=== PATIENT | female | born 1950 | race Caucasian/White ===

== ENCOUNTER 2017-11-05 06:24 | Day surgery (SDC) | payer MEDICARE, MEDICAID ==
[~2017-11-05 06:24] MED LIST: KETOROLAC TROMETHAMINE 0.45% 4 DROP/0.4 ML DROPERETTE OD PRN
[2017-11-05] MEDS: CYCLOPENTOLATE 0.2%/PHENYLEPHRINE 1% OPH SOLN 2 ML OD PRN ×3 (06:56→07:16)
[2017-11-05] MEDS: TROPICAMIDE 1% OPH SOLN 3 ML OD PRN ×3 (06:56→07:16)
[2017-11-05] MEDS: BESIFLOXACIN HCL 0.6% OPH SUSP 5 ML BOTTLE OD PRN ×3 (06:56→07:54)
[2017-11-05] MEDS: TETRACAINE HCL 0.5% OPH SOLN 2 ML OD PRN ×3 (06:57→07:34)
[2017-11-05] MEDS ORDERED: MIDAZOLAM 2 MG/2 ML INJ ONE (07:09)
[2017-11-05] MEDS ORDERED: FENTANYL CITRATE INJ/PF 100 MCG/2 ML AMPUL ONE (07:09)
[2017-11-05] MEDS ORDERED: EPINEPHRINE INJ/PF 1 MG/1 ML AMPULE ONE (07:10)
[2017-11-05] MEDS ORDERED: LIDOCAINE 1% INJ-PF (10 MG/ML) 30 ML SDV ONE (07:11)
[2017-11-05] MEDS ORDERED: CHONDR SU A NA/HYALUR INTRAOC KIT (SURGICARE) ONE (07:11)
[2017-11-05] MEDS ORDERED: ALBUTEROL SULFATE 0.083% NEB 2.5 MG/3 ML AMPUL NEB ONE (07:13)
--- NOTE | 2017-11-05 21:49 | [facility] DISCHARGE SUMMARY E ---
[facility] Discharge Summary NAME: NATHAN ROBLEDO AGE: 67Y ADMITTED: 11/05/2017 DISCHARGED: 11/05/2017 FINAL DIAGNOSIS: CATARACT, RIGHT EYE. HISTORY/CLINIC COURSE: This is a 66-year-old female who underwent cataract extraction of the right eye without complication, woke up in postoperative recovery in stable condition. She underwent surgery because she was having difficulty reading, even with wearing her specs with increased lighting. Patient is to be on a regular diet. No bending at the waist, no heavy lifting. Patient should use the Besivance, Ilevro, and Durezol at 3 p.m. and 8 p.m., and sleep with a rigid shield. I will see her for her 1-day postoperative tomorrow. DICTATING PHYSICIAN: MARY CHAND M.D. [id number] [id number] PHY#: [id number] ID: [id number] JOB#: [id number] ACCT: [id number] cc:MARY CHAND M.D. >
--- NOTE | 2017-11-05 21:49 | [facility] OPERATIVE REPORT E ---
[facility] Operative Report NAME: NATHAN ROBLEDO AGE: 67Y DATE OF SURGERY: 11/05/2017 PREOPERATIVE DIAGNOSIS: CATARACT, RIGHT EYE. POSTOPERATIVE DIAGNOSIS: CATARACT, RIGHT EYE. OPERATION: Cataract extraction with intraocular lens implant of the right eye. SURGEON: MARY CHAND M.D. ANESTHESIA: Topical. PROCEDURE: After obtaining appropriate consent, the patient's right eye was prepped and draped in sterile fashion as well as the surgeon in a sterile manner and cataract surgery was started. First a paracentesis blade was used to make a small side-port incision. Viscoelastic was used to inflate the anterior chamber. Next a 2.4 mm incision was made with the paracentesis blade. A continuous capsulorrhexis incision was made using a cystotome and Utrata forceps. Following this hydrodissection was carried out to make the lens fully loose and mobile and it was rotated 90 degrees. Following this, a azuuma-pya-tsvzeli technique was used to phacoemulsify the lens with a CDE of 3.69. The remaining cortex was removed with irrigation/aspiration. Provisc was instilled into the capsular bag to inflate the bag. A SN60WF, 23.5 diopter lens was placed. The remaining viscoelastic material was removed with irrigation/aspiration. Following this, a 10-0 nylon suture was used to close the incision and it was found to be watertight. Vigamox was instilled in the eye and a protective shield was placed over the eye. The patient returned to the postoperative recovery in stable condition. DICTATING PHYSICIAN: MARY CHAND M.D. [id number] PHY#: [id number] ID: [id number] JOB#: [id number] ACCT: [id number] cc:MARY CHAND M.D. >
== END 2017-11-05 08:45 | disposition home or self-care (01) ==
LOC: SC 06:24
PROVIDERS: ATTEND Internal Medicine
PROC: 08RJ3JZ Replacement of Right Lens with Synthetic Substitute, Percutaneous Approach (ICD-10-PCS; principal; 2017-11-05 07:30)
DX: H25.11 Age-related nuclear cataract, right eye (principal); J44.9 Chronic obstructive pulmonary disease, unspecified; E11.9 Type 2 diabetes mellitus without complications; K21.9 Gastro-esophageal reflux disease without esophagitis; I10 Essential (primary) hypertension; F17.210 Nicotine dependence, cigarettes, uncomplicated; G47.30 Sleep apnea, unspecified; Z79.899 Other long term (current) drug therapy; Z79.4 Long term (current) use of insulin
CPT/HCPCS: 66984; 82962; V2632; J2250; J3490 ×2; A9270 ×2; J0171; J3010; 142

== ENCOUNTER 2017-11-26 06:25 | Day surgery (SDC) | payer MEDICARE, MEDICAID ==
[2017-11-26] MEDS: TROPICAMIDE 1% OPH SOLN 3 ML OS PRN ×3 (06:54→07:15)
[2017-11-26] MEDS: CYCLOPENTOLATE 0.2%/PHENYLEPHRINE 1% OPH SOLN 2 ML OS PRN ×3 (06:54→07:15)
[2017-11-26] MEDS: TETRACAINE HCL 0.5% OPH SOLN 2 ML OS PRN ×3 (06:54→07:31)
[2017-11-26] MEDS: BESIFLOXACIN HCL 0.6% OPH SUSP 5 ML BOTTLE OS PRN ×3 (06:55→07:55)
[2017-11-26] MEDS: KETOROLAC TROMETHAMINE 0.45% 4 DROP/0.4 ML DROPERETTE OS PRN ×2 (06:55→08:00)
[2017-11-26] MEDS ORDERED: ALBUTEROL SULFATE 0.083% NEB 2.5 MG/3 ML AMPUL NEB ONE (07:06)
[2017-11-26] MEDS ORDERED: MIDAZOLAM 2 MG/2 ML INJ ONE (07:11)
[2017-11-26] MEDS ORDERED: CHONDR SU A NA/HYALUR INTRAOC KIT (SURGICARE) ONE (07:13)
[2017-11-26] MEDS ORDERED: EPINEPHRINE INJ/PF 1 MG/1 ML AMPULE ONE (07:13)
[2017-11-26] MEDS ORDERED: LIDOCAINE 1% INJ-PF (10 MG/ML) 30 ML SDV ONE (07:13)
--- NOTE | 2017-11-26 19:54 | [facility] DISCHARGE SUMMARY E ---
[facility] Discharge Summary NAME: NATHAN ROBLEDO AGE: 67Y ADMITTED: 11/26/2017 DISCHARGED: 11/26/2017 HOSPITAL COURSE: This is a 67-year-old female who underwent cataract extraction of the left eye. DIAGNOSIS: CATARACT, LEFT EYE. She underwent surgery because she was having trouble seeing words on the TV and small print. DISCHARGE INSTRUCTIONS: She should be on a regular diet. No bending at her waist, no heavy lifting. She should use Besivance, Ilevro, and Durezol at 3 p.m. and 8 p.m. and sleep with a rigid shield. I will see her for her 1 day postoperative tomorrow. DICTATING PHYSICIAN: MARY CHAND M.D. [id number] PHY#: [id number] ID: [id number] JOB#: [id number] ACCT: [id number] cc:MARY CHAND M.D. >
--- NOTE | 2017-11-26 19:54 | [facility] OPERATIVE REPORT E ---
[facility] Operative Report NAME: NATHAN ROBLEDO AGE: 67Y DATE OF SURGERY: 11/26/2017 ROOM: PREOPERATIVE DIAGNOSIS: CATARACT, LEFT EYE. POSTOPERATIVE DIAGNOSIS: CATARACT, LEFT EYE. OPERATION: Cataract extraction with intraocular lens implant of the left eye. SURGEON: MARY CHAND M.D. ANESTHESIA: Topical. PROCEDURE: After obtaining appropriate consent, the patient's left eye was prepped and draped in sterile fashion as well as the surgeon in a sterile manner and cataract surgery was started. First a paracentesis blade was used to make a small side-port incision. Viscoelastic was used to inflate the anterior chamber. Next a 2.4 mm incision was made with the paracentesis blade. A continuous capsulorrhexis incision was made using a cystotome and Utrata forceps. Following this hydrodissection was carried out to make the lens fully loose and mobile and it was rotated 90 degrees. Following this, a pgmxht-por-comjztz technique was used to phacoemulsify the lens. The remaining cortex was removed with irrigation/aspiration. Provisc was instilled into the capsular bag to inflate the bag. A SN60WF, 22.5 diopter lens was placed. The remaining viscoelastic material was removed with irrigation/aspiration. Following this, a 10-0 nylon suture was used to close the incision and it was found to be watertight. Vigamox was instilled in the eye and a protective shield was placed over the eye. The patient returned to the postoperative recovery in stable condition. DICTATING PHYSICIAN: MARY CHAND M.D. [id number] [id number] PHY#: [id number] ID: [id number] JOB#: [id number] ACCT: [id number] cc:MARY CHAND M.D. > MTDD
== END 2017-11-26 08:41 | disposition home or self-care (01) ==
LOC: SC 06:25
PROVIDERS: ATTEND Internal Medicine
PROC: 08RK3JZ Replacement of Left Lens with Synthetic Substitute, Percutaneous Approach (ICD-10-PCS; principal; 2017-11-26 07:30)
DX: H25.13 Age-related nuclear cataract, bilateral (principal); H53.2 Diplopia; H50.89 Other specified strabismus; H04.123 Dry eye syndrome of bilateral lacrimal glands; H34.211 Partial retinal artery occlusion, right eye; E11.9 Type 2 diabetes mellitus without complications; I10 Essential (primary) hypertension; J44.9 Chronic obstructive pulmonary disease, unspecified; M19.90 Unspecified osteoarthritis, unspecified site; F17.210 Nicotine dependence, cigarettes, uncomplicated; G40.909 Epilepsy, unspecified, not intractable, without status epilepticus; I49.9 Cardiac arrhythmia, unspecified; R07.9 Chest pain, unspecified; G43.909 Migraine, unspecified, not intractable, without status migrainosus; I51.9 Heart disease, unspecified; Z79.4 Long term (current) use of insulin; Z86.73 Personal history of transient ischemic attack (TIA), and cerebral infarction without residual deficits; Z85.42 Personal history of malignant neoplasm of other parts of uterus
CPT/HCPCS: 66984; 82962; V2632; J2250; J3490 ×2; A9270 ×2; J0171; 142

== ENCOUNTER 2017-12-03 11:45 | Day surgery (SDC) | payer MEDICARE, MEDICAID ==
[~2017-12-03 11:45] MED LIST changes: +DIPHENHYDRAMINE HCL 50 MG/ML VIAL ONE; +EPINEPHRINE INJ 1 MG/10 ML DISP.SYRIN ONE; +FENTANYL CITRATE INJ/PF 100 MCG/2 ML AMPUL ONE; +FLUMAZENIL INJ 0.5 MG/5 ML VIAL ONE; +GLUCAGON,HUMAN RECOMB 1 MG INJ ONE; -KETOROLAC TROMETHAMINE 0.45% 4 DROP/0.4 ML DROPERETTE OD PRN; +MIDAZOLAM 2 MG/2 ML INJ ONE; +NALOXONE HCL INJ/PF 0.4 MG/1 ML SDV ONE; +ONDANSETRON HCL INJ/PF 4 MG/2 ML SDV ONE
--- NOTE | 2017-12-03 14:06 | Operative Report ---
Operative Report DATE OF SURGERY: 12/03/17 Operative Report: The risks benefits and alternatives of the procedure explained to the patient in detail and informed consent is obtained.A GIF Olympus video scope was inserted into the patient's mouth and hypopharynx, the esophagus is identified intubated and insufflated ,the scope was then advanced through the esophagus stomach and duodenum, retroflexion maneuver is done the esophagus stomach and first and second portions of the duodenum examined PREOPERATIVE DIAGNOSIS: Dysphagia POSTOPERATIVE DIAGNOSIS: Schatzki's ring status post breakage. Hiatal hernia. Gastritis status post biopsy rule out Helicobacter pylori OPERATION: EGD with biopsy SURGEON: VIANNEY LAURA ANESTHESIA: Moderate Sedation - 2 mg of Versed, 50 mcg of fentanyl. Conscious sedation monitoring time 30 minutes. TISSUE REMOVED OR ALTERED: As noted above. COMPLICATIONS: None. ESTIMATED BLOOD LOSS: None. INTRAOPERATIVE FINDINGS: As noted above. PROCEDURE: Patient tolerated procedure well. No immediate postprocedure complications are noted. Patient discharged in good condition. Discharge date 12/03/2017. Discharge diet: Regular. Discharge activity: Regular. 2-3 week follow-up to discuss findings. Patient is instructed call the office or proceed to the emergency room should there be any further problems or questions. We will await pathology.
[2017-12-03 14:26] VITALS: BP 163/69
== END 2017-12-03 14:07 | disposition home or self-care (01) ==
LOC: END 11:45
PROVIDERS: ATTEND Internal Medicine Gastroenterology
PROC: 0DB68ZX Excision of Stomach, Via Natural or Artificial Opening Endoscopic, Diagnostic (ICD-10-PCS; principal; 2017-12-03 12:30)
DX: K22.2 Esophageal obstruction (principal); K44.9 Diaphragmatic hernia without obstruction or gangrene; K29.70 Gastritis, unspecified, without bleeding; K21.9 Gastro-esophageal reflux disease without esophagitis; I11.9 Hypertensive heart disease without heart failure; J44.9 Chronic obstructive pulmonary disease, unspecified; E11.9 Type 2 diabetes mellitus without complications; E53.8 Deficiency of other specified B group vitamins; E78.01 Familial hypercholesterolemia; G43.909 Migraine, unspecified, not intractable, without status migrainosus; Z79.899 Other long term (current) drug therapy; Z79.82 Long term (current) use of aspirin; Z79.4 Long term (current) use of insulin
CPT/HCPCS: 43239; 82962; 88305 ×2; J2250; J3010; J0171; J1200; J1610; J2310; J2405; J3490

== ENCOUNTER 2018-01-04 07:25 | Day surgery (SDC) | payer MEDICARE, MEDICAID ==
[~2018-01-04 07:25] MED LIST changes: -DIPHENHYDRAMINE HCL 50 MG/ML VIAL ONE; -EPINEPHRINE INJ 1 MG/10 ML DISP.SYRIN ONE; -FENTANYL CITRATE INJ/PF 100 MCG/2 ML AMPUL ONE; -FLUMAZENIL INJ 0.5 MG/5 ML VIAL ONE; -GLUCAGON,HUMAN RECOMB 1 MG INJ ONE; -MIDAZOLAM 2 MG/2 ML INJ ONE; -NALOXONE HCL INJ/PF 0.4 MG/1 ML SDV ONE; -ONDANSETRON HCL INJ/PF 4 MG/2 ML SDV ONE; +PROPOFOL INJ 200 MG/20 ML VIAL IV ONE
[2018-01-04 08:52] VITALS: BP 134/57
--- NOTE | 2018-01-04 13:25 | Operative Report ---
Operative Report DATE OF SURGERY: 01/04/18 Operative Report: The risks benefits and alternatives of the procedure explained to the patient in detail and informed consent is obtained.A GIF Olympus video scope was inserted into the patient's mouth and hypopharynx, the esophagus is identified intubated and insufflated, the scope was then advanced through the esophagus stomach and duodenum, retroflexion maneuver is done, the esophagus stomach and first and second portions of the duodenum examined PREOPERATIVE DIAGNOSIS: Schatzki's ring previously broken but patient still having dysphagia POSTOPERATIVE DIAGNOSIS: Schatzki's ring and hiatal hernia present. Status post bougie dilation over guidewire 45 [place] OPERATION: EGD with dilation SURGEON: VIANNEY LAURA ANESTHESIA: LMAC TISSUE REMOVED OR ALTERED: None. COMPLICATIONS: None. ESTIMATED BLOOD LOSS: None. INTRAOPERATIVE FINDINGS: As noted above. PROCEDURE: Patient tolerated procedure well. No postprocedure complications are noted. Patient discharged in good condition. Discharge date 01/04/2018. Discharge diet: Regular. Discharge activity: Regular. 2-3 week follow-up to discuss findings. Patient is instructed call the office should there be any further problems or questions. We will wait on pathology.
== END 2018-01-04 09:00 | disposition home or self-care (01) ==
LOC: END 07:25
PROVIDERS: ATTEND Internal Medicine Gastroenterology
DX: K22.2 Esophageal obstruction (principal); J44.9 Chronic obstructive pulmonary disease, unspecified; I25.10 Atherosclerotic heart disease of native coronary artery without angina pectoris; I10 Essential (primary) hypertension; E11.9 Type 2 diabetes mellitus without complications; F17.210 Nicotine dependence, cigarettes, uncomplicated; I11.9 Hypertensive heart disease without heart failure; G47.33 Obstructive sleep apnea (adult) (pediatric); E78.01 Familial hypercholesterolemia; Z86.73 Personal history of transient ischemic attack (TIA), and cerebral infarction without residual deficits; Z79.4 Long term (current) use of insulin; Z79.84 Long term (current) use of oral hypoglycemic drugs; Z79.82 Long term (current) use of aspirin; Z79.899 Other long term (current) drug therapy; Z88.5 Allergy status to narcotic agent; Z88.1 Allergy status to other antibiotic agents; Z88.6 Allergy status to analgesic agent; Z88.7 Allergy status to serum and vaccine; Z88.8 Allergy status to other drugs, medicaments and biological substances
CPT/HCPCS: 43248; 731; 82962; J2704

== ENCOUNTER → 2019-02-23 | Outpatient (CLI) | payer MEDICARE, MEDICAID ==
--- NOTE | 2019-02-23 19:00 | RADIOLOGY REPORT (SQ) ---
EXAM DESCRIPTION: MRI HEAD COMBO COMPLETED DATE/TIME: 02/23/2019 4:25 pm REASON FOR STUDY: DIPLOPIA H53.2 DIPLOPIA COMPARISON: None. TECHNIQUE: Multiplanar imaging includes noncontrasted T1, T2, FLAIR, Diffusion with ADC map and post gadolinium contrast T1 sequences. Images stored on PACS. CONTRAST TYPE AND DOSE: 20 mL Dotarem RENAL FUNCTION: GFR > 60. LIMITATIONS: None. FINDINGS: ANATOMY: No anomalies. Normal vascular flow voids. Pituitary fossa normal. CSF SPACES: Atrophy-induced prominence of CSF spaces and ventricles. CEREBRUM: High-signal intensity lesions scattered throughout the white matter on FLAIR imaging with d istribution suggesting chronic micro-vascular ischemic change. No evidence of hemorrhage, mass, extra axial fluid collection or acute ischemic change. No enhancing lesions. POSTERIOR FOSSA: No hemorrhage. No edema, masses, or mass effect. Internal auditory canals, cerebell o-pontine angles, mastoids normal. No enhancing lesions. ORBITS: No masses. Globes unremarkable. PARANASAL SINUSES: Mucosal thickening -fluid in the sphenoid sinus. DIFFUSION: No evidence of recent infarct. OTHER: No other significant finding. IMPRESSION: Mucosal thickening -fluid in the sphenoid sinus.No evidence of recent infarct.High-signa l intensity lesions scattered throughout the white matter on FLAIR imaging with distribution suggesti ng chronic micro-vascular ischemic change. No enhancing lesions. Orbits unremarkable. EVIDENCE OF ACUTE STROKE: NO. TECHNICAL DOCUMENTATION: JOB ID: [id number] [id number] 2010 [employer]- All Rights Reserved Reading location - IP/workstation name: [email or web address]
== END ==
LOC: RAD 14:58
PROVIDERS: ATTEND Internal Medicine
DX: H53.2 Diplopia (principal)
CPT/HCPCS: 70553; A9576

== ENCOUNTER 2020-04-18 07:37 | Day surgery (SDC) | payer MEDICARE, MEDICAID ==
[2020-04-18] MEDS ORDERED: PROPOFOL INJ 200 MG/20 ML VIAL IV ONE (08:00)
[2020-04-18 10:31] VITALS: BP 137/58
--- NOTE | 2020-04-18 10:58 | Operative Report ---
Operative Report DATE OF SURGERY: 04/18/20 Operative Report: Risk, benefits and alternatives of the procedure including the risk of bleeding, perforation requiring surgery have been explained to the patient in detail and informed consent has been obtained. Patient is taken back to the endoscopy suite and placed in the left, lateral decubital position. Timeout was called. Propofol medication is administered. A rectal examination is done which did not reveal any masses, tears or fissures. An Olympus videoscope was introduced into the patient's rectum. Scope was then carefully advanced all the way to the cecum. Cecum was identified by the usual anatomical landmarks including the ileocecal valve as well as appendiceal office. Photodocumentation is obtained. Scope was then sequentially pulled back via the various segments of the colon including the ascending colon, hepatic lecture, transverse colon, splenic flexure, descending colon finding to the rectosigmoid portions of the colon. Retroflexion maneuvers performed. PREOPERATIVE DIAGNOSIS: Change of bowel habits, diarrhea POSTOPERATIVE DIAGNOSIS: Random biopsies taken to rule out collagenous colitis. 3 colon polyps all removed via snare polypectomy and retrieved, the polyps were somewhat on the largest size approximating approximately 1 cm. Diverticulosis without any evidence of diverticulitis. Internal hemorrhoids OPERATION: Colonoscopy snare polypectomy. colonoscopy with biopsy SURGEON: VIANNEY LAURA ANESTHESIA: LMAC TISSUE REMOVED OR ALTERED: As noted above. COMPLICATIONS: None. ESTIMATED BLOOD LOSS: None. INTRAOPERATIVE FINDINGS: As noted above. PROCEDURE: Patient tolerated the procedure well. No immediate postprocedure complications are noted. Patient is discharged in good condition. Discharge date 04/18/2019. Discharge diet: Regular. Discharge activity: Regular. 2 to 3-week follow-up to discuss findings. Patient is instructed call the office or proceed to the emergency room should there be any further problems or questions. Wait on the pathology. Likely 3-year surveillance colonoscopy.
== END 2020-04-18 10:30 | disposition home or self-care (01) ==
LOC: END 07:37
PROVIDERS: ATTEND Internal Medicine Gastroenterology
DX: D12.6 Benign neoplasm of colon, unspecified (principal); K57.30 Diverticulosis of large intestine without perforation or abscess without bleeding; K64.8 Other hemorrhoids; J44.9 Chronic obstructive pulmonary disease, unspecified; F17.210 Nicotine dependence, cigarettes, uncomplicated; I10 Essential (primary) hypertension; R06.02 Shortness of breath; I25.2 Old myocardial infarction; E11.9 Type 2 diabetes mellitus without complications; Z03.818 Encounter for observation for suspected exposure to other biological agents ruled out; E66.9 Obesity, unspecified; G47.33 Obstructive sleep apnea (adult) (pediatric); E53.8 Deficiency of other specified B group vitamins; E78.01 Familial hypercholesterolemia; I25.10 Atherosclerotic heart disease of native coronary artery without angina pectoris; Z86.73 Personal history of transient ischemic attack (TIA), and cerebral infarction without residual deficits
CPT/HCPCS: 45385; 82962; 88305 ×2; U0003; J2704; C9803; 811; 87635

== ENCOUNTER 2020-04-26 10:54 | Emergency (ER) | payer MEDICARE, MEDICAID ==
[2020-04-26 11:20] VITALS: BP 117/49
--- NOTE | 2020-04-26 11:31 | ER Document Report ---
ED Medical Screen (RME) - General Chief Complaint: Back Pain Stated Complaint: BACK PAIN Time Seen by Provider: 04/26/20 11:25 Primary Care Provider: MARY CHAND MD [Primary Care Provider] - Follow up as needed Mode of Arrival: Wheelchair Information source: Patient Notes: 69-year-old female presents to ED for complaint of low back pain pain with urination sometimes has to go to the bathroom fast. She states she does have numbness to both legs. She was sent by another doctor to rule out cauda equina. She states she has had surgery in her low back about 7 or 8 years ago. She states she has a history of anxiety panic attacks diverticulitis. She states she smokes 10 to 12 cigarettes a day does not drink or use any alcohol. I have greeted and performed a rapid initial assessment of this patient. A comprehensive ED assessment and evaluation of the patient, analysis of test results and completion of medical decision making process will be conducted by an additional ED providers. TRAVEL OUTSIDE OF THE [place] IN LAST 30 DAYS: No - Related Data Allergies/Adverse Reactions: oxycodone HCl [From Percocet] Allergy (Severe, Verified 04/18/20 08:12) Hives propoxyphene napsylate [From Darvocet-N 100] Allergy (Severe, Verified 04/18/20 08:12) Hives Tetanus Vaccines and Toxoid [Tetanus] Allergy (Severe, Verified 04/18/20 08:12) SWELLING, LOCALIZED REDNESS, FEVER tramadol HCl [From Ultram] Allergy (Severe, Verified 04/18/20 08:12) Hives benazepril Allergy (Verified 04/18/20 08:12) Anaphylaxis codeine [Codeine] Allergy (Verified 04/18/20 08:12) nausea vomit meperidine [From Demerol] Allergy (Verified 04/26/20 11:25) amoxicillin trihydrate [From Augmentin] Adverse Reaction (Verified 04/18/20 08:12) rash Potassium Clavulanate * [From Augmentin] Adverse Reaction (Verified 04/18/20 08:12) Past Medical History - Past Medical History Cardiac Medical History: Reports: Hx Atrial Fibrillation, Hx Coronary Artery Disease, Hx Heart Attack - 2006, Hx Hypertension Denies: Hx Congestive Heart Failure, Hx Hypercholesterolemia, Hx Peripheral Vascular Disease, Hx Heart Murmur Pulmonary Medical History: Reports: Hx Asthma, Hx Bronchitis, Hx COPD, Hx Pneumonia - MULT Denies: Hx Tuberculosis Neurological Medical History: Reports: Hx Cerebrovascular Accident - RIGHT EYE , WEAKER ON RIGHT 2017, Hx Migraine, Hx Seizures Endocrine Medical History: Reports: Hx Diabetes Mellitus Type 2 Renal/ Medical History: Reports: Hx Kidney Stones. Denies: Hx End Stage Renal Disease, Hx Peritoneal Dialysis GI Medical History: Denies: Hx Hepatitis, Hx Hiatal Hernia, Hx Ulcer Musculoskeltal Medical History: Reports Hx Arthritis, Reports Hx Fibromyalgia, Denies Hx Muscular Dystrophy Psychiatric Medical History: Reports: Hx Depression Traumatic Medical History: Denies: Hx Fractures Infectious Medical History: Denies: Hx Hepatitis Past Surgical History: Reports: Hx Appendectomy, Hx Cholecystectomy, Hx Hysterectomy. Denies: Hx Bowel Surgery, Hx Section, Hx Coronary Artery Bypass Graft, Hx Gastric Bypass Surgery, Hx Herniorrhaphy, Hx Mastectomy, Hx Open Heart Surgery, Hx Pacemaker, Hx Tonsillectomy, Hx Tubal Ligation - Immunizations Hx Diphtheria, Pertussis, Tetanus Vaccination: Yes Physical Exam - Vital signs Vitals: Temp Pulse Resp BP Pulse Ox 98.8 F 70 20 117/49 L 94 04/26/20 11:19 04/26/20 11:19 04/26/20 11:19 04/26/20 11:19 04/26/20 11:19 Course - Vital Signs Vital signs: Temp Pulse Resp BP Pulse Ox 98.8 F 70 20 117/49 L 94 04/26/20 11:19 04/26/20 11:19 04/26/20 11:19 04/26/20 11:19 04/26/20 11:19 Doctor's Discharge - Discharge Referrals: MARY CHAND MD [Primary Care Provider] - Follow up as needed
[2020-04-26 12:11] LABS: ABSOLUTE EOSINOPHILS # (AUTO) 0.1 10^3/uL (0.0-0.6); ABSOLUTE LYMPHOCYTES (AUTO) 1.7 10^3/uL (0.5-4.7); ABSOLUTE MONOCYTES (AUTO) 0.4 10^3/uL (0.1-1.4); BASOPHILS % (AUTO) 0.5 % (0-2); EOSINOPHILS % (AUTO) 2.2 % (0-6); HEMATOCRIT 39.1 % (36.0-47.0); HEMOGLOBIN 13.4 g/dL (12.0-15.5); MEAN CORPUSCULAR HEMOGLOBIN 34.9 pg (27.0-33.4); MEAN CORPUSCULAR HGB CONC 34.4 g/dL (32.0-36.0); MEAN CORPUSCULAR VOLUME 102 fl (80-97); PLATELET COUNT 165 10^3/uL (150-450); RED BLOOD COUNT 3.85 10^6/uL (3.72-5.28); RED CELL DISTRIBUTION WIDTH 13.5 % (11.5-14.0); SEGMENTED NEUTROPHILS % (AUTO) 63.3 % (42-78); TOTAL CELLS COUNTED % (AUTO) 100 %; WHITE BLOOD COUNT 6.3 10^3/uL (4.0-10.5)
[2020-04-26 12:38] LABS: ALBUMIN 4.1 g/dL (3.5-5.0); ALKALINE PHOSPHATASE 70 U/L (38-126); ANION GAP 6 (5-19); ASPARTATE AMINO TRANSFERASE 28 U/L (14-36); BILIRUBIN,TOTAL 0.7 mg/dL (0.2-1.3); BLOOD UREA NITROGEN 8 mg/dL (7-20); CALCIUM 9.4 mg/dL (8.4-10.2); CARBON DIOXIDE 28 mmol/L (22-30); CHLORIDE 106 mmol/L (98-107); GLUCOSE 83 mg/dL (75-110); POTASSIUM 4.4 mmol/L (3.6-5.0); TOTAL PROTEIN 6.6 g/dL (6.3-8.2)
[2020-04-26 12:44] LABS: APPEARANCE,URINE CLEAR; BILIRUBIN,URINE NEGATIVE (NEGATIVE); COLOR,URINE YELLOW; GLUCOSE, URINE NEGATIVE (NEGATIVE); KETONES,URINE NEGATIVE (NEGATIVE); LEUKOCYTE ESTERASE,URINE NEGATIVE (NEGATIVE); NITRITE,URINE NEGATIVE (NEGATIVE); PROTEIN,URINE NEGATIVE (NEGATIVE); URINE SPECIFIC GRAVITY 1.006; UROBILINOGEN,URINE NEGATIVE mg/dL (<2.0)
--- NOTE | 2020-04-26 13:09 | RADIOLOGY REPORT (SQ) ---
EXAM DESCRIPTION: L SPINE WHOLE IMAGES COMPLETED DATE/TIME: 04/26/2020 12:56 pm REASON FOR STUDY: low back pain, decrease sensation COMPARISON: None. NUMBER OF VIEWS: Five views including obliques. TECHNIQUE: AP, lateral, oblique, and sacral radiographic images acquired of the lumbar spine. LIMITATIONS: None. FINDINGS: MINERALIZATION: Normal. SEGMENTATION: Normal. No transitional anatomy. ALIGNMENT: There is levoscoliosis in the upper lumbar spine. VERTEBRAE: Maintained height. No fracture or worrisome bone lesion. DISCS: Disc spaces are narrowed at multiple levels. Bridging osteophytes is seen on the right at L2- 3 and on the left at L4-5 POSTERIOR ELEMENTS: Hypertrophic facet changes at L5-S1. L5 laminectomy. HARDWARE: None in the spine. PARASPINAL SOFT TISSUES: Normal. PELVIS: Intact as visualized. No fractures or worrisome bone lesions. SI joints intact. OTHER: No other significant finding. IMPRESSION: Degenerative disc disease, spondylosis, and facet arthropathy. No acute finding. TECHNICAL DOCUMENTATION: JOB ID: [id number] 2010 [employer]- All Rights Reserved Reading location - IP/workstation name: [email or web address]
== END 2020-04-26 15:00 | disposition left against medical advice (07) ==
LOC: ER 10:54
DX: M54.5 Low back pain (principal); I48.91 Unspecified atrial fibrillation; I25.10 Atherosclerotic heart disease of native coronary artery without angina pectoris; I11.0 Hypertensive heart disease with heart failure; E11.9 Type 2 diabetes mellitus without complications; Z88.6 Allergy status to analgesic agent; I25.2 Old myocardial infarction
CPT/HCPCS: 36415; 72110; 80053; 81001; 83690; 85025; 87086; 99281

== ENCOUNTER 2020-07-20 18:13 | Inpatient (IN) | payer MEDICARE, MEDICAID ==
--- NOTE | 2020-07-20 18:55 | RADIOLOGY REPORT (SQ) ---
EXAM DESCRIPTION: CHEST SINGLE VIEW IMAGES COMPLETED DATE/TIME: 07/20/2020 6:44 pm REASON FOR STUDY: cough COMPARISON: 03/04/2016 TECHNIQUE: Single frontal radiographic view of the chest acquired. NUMBER OF VIEWS: One view. LIMITATIONS: None. FINDINGS: LUNGS AND PLEURA: No pneumothorax. No consolidation or pleural effusion. MEDIASTINUM AND HILAR STRUCTURES: Stable. HEART AND VASCULAR STRUCTURES: Stable. BONES: No acute findings. HARDWARE: None in the chest. OTHER: No other significant finding. IMPRESSION: NO ACUTE FINDINGS. TECHNICAL DOCUMENTATION: JOB ID: [id number] [place]-72 2010 [employer]- All Rights Reserved Reading location - IP/workstation name: [facility]
[2020-07-20 18:56] LABS: VENOUS BLOOD BASE EXCESS 1.4 mmol/L; VENOUS BLOOD HCO3 25.9 mmol/L (20-32); VENOUS BLOOD PCO2 40.5 mmHg (35-63); VENOUS BLOOD PH 7.42 (7.30-7.42)
[2020-07-20 18:58] LABS: APPEARANCE,URINE SLIGHTLY-CLOUDY; BILIRUBIN,URINE NEGATIVE (NEGATIVE); COLOR,URINE YELLOW; GLUCOSE, URINE NEGATIVE (NEGATIVE); HEMATOCRIT 35.6 % (36.0-47.0); HEMOGLOBIN 12.6 g/dL (12.0-15.5); KETONES,URINE 20 mg/dL (NEGATIVE); MEAN CORPUSCULAR HGB CONC 35.2 g/dL (32.0-36.0); MEAN CORPUSCULAR VOLUME 100 fl (80-97); PLATELET COUNT 139 10^3/uL (150-450); PROTEIN,URINE 30 mg/dL (NEGATIVE); RED BLOOD COUNT 3.58 10^6/uL (3.72-5.28); RED CELL DISTRIBUTION WIDTH 13.8 % (11.5-14.0); URINE SPECIFIC GRAVITY 1.014; UROBILINOGEN,URINE NEGATIVE mg/dL (<2.0); WHITE BLOOD COUNT 7.5 10^3/uL (4.0-10.5)
[2020-07-20 19:01] LABS: INTERNATIONAL RATION (INR) 1.05; PROTHROMBIN TIME 13.9 SEC (11.4-15.4)
[2020-07-20 19:12] LABS: ALBUMIN 3.4 g/dL (3.5-5.0); ALKALINE PHOSPHATASE 59 U/L (38-126); ANION GAP 9 (5-19); ASPARTATE AMINO TRANSFERASE 22 U/L (14-36); BILIRUBIN,DIRECT 0.3 mg/dL (0.0-0.4); BLOOD UREA NITROGEN 11 mg/dL (7-20); CALCIUM 8.8 mg/dL (8.4-10.2); CARBON DIOXIDE 24 mmol/L (22-30); CHLORIDE 99 mmol/L (98-107); GLUCOSE 145 mg/dL (75-110); POTASSIUM 3.9 mmol/L (3.6-5.0); TOTAL PROTEIN 5.7 g/dL (6.3-8.2)
[2020-07-20 19:27] LABS: ABSOLUTE LYMPHOCYTES# (MANUAL) 0.2 10^3/uL (0.5-4.7); ABSOLUTE MONOCYTES # (MANUAL) 0.2 10^3/uL (0.1-1.4); BASOPHILS % (MANUAL) 0 % (0-2); EOSINOPHILS % (MANUAL) 0 % (0-6); LYMPHOCYTES % (MANUAL) 3 % (13-45); MONOCYTES % (MANUAL) 2 % (3-13); SEGMENTED NEUTROPHILS % (MAN) 95 % (42-78); TOTAL CELLS COUNTED 100
[2020-07-20 19:29] LABS: PLATELET CLUMPS PRESENT; PLATELET COMMENT ADEQUATE
[2020-07-20] MEDS ORDERED: NORMAL SALINE 1000 ML 1,000 ML IV ONE (20:42)
[2020-07-20] MEDS ORDERED: ACETAMINOPHEN 325 MG TABLET PO ONE (20:42)
[2020-07-20] MEDS ORDERED: ONDANSETRON HCL INJ/PF 4 MG/2 ML SDV IV ONE (20:42)
--- NOTE | 2020-07-20 20:48 | ER Document Report ---
ED Medical Screen (RME) - General Chief Complaint: Fever Stated Complaint: COUGH,SHORTNESS OF BREATH Time Seen by Provider: 07/20/20 20:32 Notes: Patient presents complaining of nausea vomiting diarrhea for the past 3 days. Patient reports cough for several weeks. Patient denies any fever although is febrile here today. Patient with underlying history of diabetes, hypertension, dyslipidemia and COPD. I have greeted and performed a rapid initial assessment of this patient. A comprehensive ED assessment and evaluation of the patient, analysis of test results and completion of the medical decision making process will be conducted by additional ED providers. TRAVEL OUTSIDE OF THE [place] IN LAST 30 DAYS: No - Related Data Allergies/Adverse Reactions: oxycodone HCl [From Percocet] Allergy (Severe, Verified 04/18/20 08:12) Hives propoxyphene napsylate [From Darvocet-N 100] Allergy (Severe, Verified 04/18/20 08:12) Hives Tetanus Vaccines and Toxoid [Tetanus] Allergy (Severe, Verified 04/18/20 08:12) SWELLING, LOCALIZED REDNESS, FEVER tramadol HCl [From Ultram] Allergy (Severe, Verified 04/18/20 08:12) Hives benazepril Allergy (Verified 04/18/20 08:12) Anaphylaxis codeine [Codeine] Allergy (Verified 04/18/20 08:12) nausea vomit meperidine [From Demerol] Allergy (Verified 04/26/20 11:25) amoxicillin trihydrate [From Augmentin] Adverse Reaction (Verified 04/18/20 08:12) rash Potassium Clavulanate * [From Augmentin] Adverse Reaction (Verified 04/18/20 08:12) Home Medications: Lantis Past Medical History - Past Medical History Cardiac Medical History: Reports: Hx Atrial Fibrillation, Hx Coronary Artery Disease, Hx Heart Attack - 2006, Hx Hypertension Denies: Hx Congestive Heart Failure, Hx Hypercholesterolemia, Hx Peripheral Vascular Disease, Hx Heart Murmur Pulmonary Medical History: Reports: Hx Asthma, Hx Bronchitis, Hx COPD, Hx Pneumonia - MULT Denies: Hx Tuberculosis Neurological Medical History: Reports: Hx Cerebrovascular Accident - RIGHT EYE , WEAKER ON RIGHT 2016, Hx Migraine, Hx Seizures Endocrine Medical History: Reports: Hx Diabetes Mellitus Type 2 Renal/ Medical History: Reports: Hx Kidney Stones. Denies: Hx End Stage Renal Disease, Hx Peritoneal Dialysis GI Medical History: Denies: Hx Hepatitis, Hx Hiatal Hernia, Hx Ulcer Musculoskeltal Medical History: Reports Hx Arthritis, Reports Hx Fibromyalgia, Denies Hx Muscular Dystrophy Psychiatric Medical History: Reports: Hx Depression Traumatic Medical History: Denies: Hx Fractures Infectious Medical History: Denies: Hx Hepatitis Past Surgical History: Reports: Hx Appendectomy, Hx Cholecystectomy, Hx Hysterectomy. Denies: Hx Bowel Surgery, Hx Section, Hx Coronary Artery Bypass Graft, Hx Gastric Bypass Surgery, Hx Herniorrhaphy, Hx Mastectomy, Hx Open Heart Surgery, Hx Pacemaker, Hx Tonsillectomy, Hx Tubal Ligation - Immunizations Hx Diphtheria, Pertussis, Tetanus Vaccination: Yes Physical Exam - Vital signs Vitals: Temp Resp Pulse Ox 101.6 F H 28 H 95 07/20/20 18:17 07/20/20 18:17 07/20/20 18:17 - General General appearance: Lethargic Notes: Patient repeatedly had to be woken up during interview. - Respiratory Respiratory status: Tachypnea Breath sounds: Nonproductive cough, Rales Course - Re-evaluation Re-evalutation: 07/20/20 20:44 This provider reviewed her labs and notified Dr. Shirley of her presentation and elevated troponin as well as current vital signs - Vital Signs Vital signs: Temp Pulse Resp BP Pulse Ox 101.6 F H 24 H 149/108 H 95 07/20/20 18:39 07/20/20 18:20 07/20/20 18:20 07/20/20 18:41 - Laboratory Result Diagrams: 07/20/20 18:23 07/20/20 18:23 Laboratory results interpreted by me: 07/20/20 07/20/20 07/20/20 18:23 18:23 18:23 RBC 3.58 L Hct 35.6 L MCV 100 H MCH 35.0 H Plt Count 139 L Seg Neuts % (Manual) 95 H Lymphocytes % (Manual) 3 L Monocytes % (Manual) 2 L Abs Lymphs (Manual) 0.2 L Sodium 132.4 L Glucose 145 H POC Glucose Lactic Acid 3.1 H Total Protein 5.7 L Albumin 3.4 L Urine Protein Urine Ketones Urine Blood Leukocyte Esterase Rfl 07/20/20 07/20/20 18:23 18:49 RBC Hct MCV MCH Plt Count Seg Neuts % (Manual) Lymphocytes % (Manual) Monocytes % (Manual) Abs Lymphs (Manual) Sodium Glucose POC Glucose 169 H Lactic Acid Total Protein Albumin Urine Protein 30 H Urine Ketones 20 H Urine Blood SMALL H Leukocyte Esterase Rfl MODERATE H
[2020-07-20] MEDS ORDERED: LEVOFLOXACIN 750 MG/D5W RTU 750 MG/150 ML RTUPB IV ONE (20:59)
[2020-07-20] MEDS ORDERED: NORMAL SALINE IV ONE (20:59)
--- NOTE | 2020-07-20 21:01 | ER Document Report ---
ED General - General Chief Complaint: Fever Stated Complaint: COUGH,SHORTNESS OF BREATH Time Seen by Provider: 07/20/20 20:32 TRAVEL OUTSIDE OF THE [place] IN LAST 30 DAYS: No - HPI Context: This is a 69-year-old female who presents to the emergency department for evaluation of fever, generalized weakness, shortness of breath, cough, nausea, vomiting and diarrhea x1 week. Patient denies chest pain. Patient states that she does not feel well but she denies being in pain. Patient states nothing seems to exacerbate her symptoms other than activity and nothing seems to alleviate her symptoms. Patient denies history of prior COVID infection, known exposure to persons positive for COVID or persons under investigation for COVID. Patient does have a history of diabetes, hypertension, dyslipidemia and COPD. Patient states that she does smoke. Associated symptoms: Other - See HPI Exacerbated by: Other - See HPI Relieved by: Other - See HPI - Related Data Allergies/Adverse Reactions: oxycodone HCl [From Percocet] Allergy (Severe, Verified 04/18/20 08:12) Hives propoxyphene napsylate [From Darvocet-N 100] Allergy (Severe, Verified 04/18/20 08:12) Hives Tetanus Vaccines and Toxoid [Tetanus] Allergy (Severe, Verified 04/18/20 08:12) SWELLING, LOCALIZED REDNESS, FEVER tramadol HCl [From Ultram] Allergy (Severe, Verified 04/18/20 08:12) Hives benazepril Allergy (Verified 04/18/20 08:12) Anaphylaxis codeine [Codeine] Allergy (Verified 04/18/20 08:12) nausea vomit meperidine [From Demerol] Allergy (Verified 04/26/20 11:25) amoxicillin trihydrate [From Augmentin] Adverse Reaction (Verified 04/18/20 08:12) rash Potassium Clavulanate * [From Augmentin] Adverse Reaction (Verified 04/18/20 08:12) Home Medications: L[facility] Past Medical History - General Information source: Patient - Social History Smoking Status: Current Every Day Smoker Frequency of alcohol use: None Drug Abuse: None Family History: Reviewed & Not Pertinent Patient has homicidal ideation: No - Past Medical History Cardiac Medical History: Reports: Hx Atrial Fibrillation, Hx Coronary Artery Disease, Hx Heart Attack - 2006, Hx Hypertension Denies: Hx Congestive Heart Failure, Hx Hypercholesterolemia, Hx Peripheral Vascular Disease, Hx Heart Murmur Pulmonary Medical History: Reports: Hx Asthma, Hx Bronchitis, Hx COPD, Hx Pneumonia - MULT Denies: Hx Tuberculosis Neurological Medical History: Reports: Hx Cerebrovascular Accident - RIGHT EYE , WEAKER ON RIGHT 2017, Hx Migraine, Hx Seizures Endocrine Medical History: Reports: Hx Diabetes Mellitus Type 2 Renal/ Medical History: Reports: Hx Kidney Stones. Denies: Hx End Stage Renal Disease, Hx Peritoneal Dialysis GI Medical History: Denies: Hx Hepatitis, Hx Hiatal Hernia, Hx Ulcer Musculoskeletal Medical History: Reports Hx Arthritis, Reports Hx Fibromyalgia, Denies Hx Muscular Dystrophy Psychiatric Medical History: Reports: Hx Depression Traumatic Medical History: Denies: Hx Fractures Infectious Medical History: Denies: Hx Hepatitis Past Surgical History: Reports: Hx Appendectomy, Hx Cholecystectomy, Hx Hys terectomy. Denies: Hx Bowel Surgery, Hx Section, Hx Coronary Artery Bypass Graft, Hx Gastric Bypass Surgery, Hx Herniorrhaphy, Hx Mastectomy, Hx Open Heart Surgery, Hx Pacemaker, Hx Tonsillectomy, Hx Tubal Ligation - Immunizations Hx Diphtheria, Pertussis, Tetanus Vaccination: Yes Hx Pneumococcal Vaccination: 10/12/13 Review of Systems - Review of Systems Constitutional: Fever, Weakness EENT: No symptoms reported Cardiovascular: denies: Chest pain Respiratory: Cough, Short of breath Gastrointestinal: Diarrhea, Nausea, Vomiting Genitourinary: No symptoms reported Female Genitourinary: No symptoms reported Musculoskeletal: No symptoms reported Skin: No symptoms reported Hematologic/Lymphatic: No symptoms reported Neurological/Psychological: No symptoms reported -: Yes All other systems reviewed and negative Physical Exam - Vital signs Vitals: Temp Resp Pulse Ox 101.6 F H 28 H 95 07/20/20 18:17 07/20/20 18:17 07/20/20 18:17 - Notes Notes: CONSTITUTIONAL [Vital signs reviewed, patient does not appear to be in any acute distress. Patient is somnolent but arousable, HEAD [Atraumatic, Normocephalic.] EYES [Eyes are normal to inspection, No discharge from eyes, Extraocular muscles intact, Sclera are normal, Conjunctiva are normal.] ENT Nose examination normal, Posterior pharynx normal, Mouth normal to inspection.] NECK [Normal ROM, No jugular venous distention, No meningeal signs] RESPIRATORY CHEST [Chest is nontender, patient has some rhonchi present bilateral bases (left greater than right), No respiratory distress.] CARDIOVASCULAR [RRR, No murmurs, Normal S1 S2, No rub, No gallop.] ABDOMEN [Abdomen is nontender, No pulsatile masses, No other masses, Bowel sounds normal, No distension, No peritoneal signs, No hernias.] BACK [There is no CVA Tenderness, There is no tenderness to palpation, Normal inspection.] UPPER EXTREMITY [Inspection normal, No cyanosis, No clubbing, No edema, 2+ radial pulses.] LOWER EXTREMITY [Inspection normal, No cyanosis, No clubbing, No edema, No calf tenderness, 2+ femoral pulses.] NEURO [No focal motor deficits, No focal sensory deficits, Speech normal.] SKIN [Skin is warm, Skin is dry, Skin is normal color.] PSYCHIATRIC [Depressed affect Course - Vital Signs Vital signs: Temp Pulse Resp BP Pulse Ox 98.7 F 19 118/90 H 94 07/21/20 00:00 07/21/20 03:50 07/21/20 03:42 07/21/20 03:50 - Laboratory Result Diagrams: 07/20/20 18:23 07/20/20 18:23 Laboratory results interpreted by me: 07/20/20 07/20/20 07/20/20 18:23 18:23 18:23 RBC 3.58 L Hct 35.6 L MCV 100 H MCH 35.0 H Plt Count 139 L Seg Neuts % (Manual) 95 H Lymphocytes % (Manual) 3 L Monocytes % (Manual) 2 L Abs Lymphs (Manual) 0.2 L Sodium 132.4 L Glucose 145 H POC Glucose Lactic Acid 3.1 H Total Protein 5.7 L Albumin 3.4 L Urine Protein Urine Ketones Urine Blood Leukocyte Esterase Rfl 07/20/20 07/20/20 18:23 18:49 RBC Hct MCV MCH Plt Count Seg Neuts % (Manual) Lymphocytes % (Manual) Monocytes % (Manual) Abs Lymphs (Manual) Sodium Glucose POC Glucose 169 H Lactic Acid Total Protein Albumin Urine Protein 30 H Urine Ketones 20 H Urine Blood SMALL H Leukocyte Esterase Rfl MODERATE H - Diagnostic Test Radiology reviewed: Reports reviewed - EKG Interpretation by Me Additional EKG results interpreted by me: 07/20/20 22:17 EKG obtained on 07/20/2020 at 1847 hrs. was interpreted by this MD. Findings: Normal sinus rhythm, rate 93, normal axis, OR interval appears within normal limits, P waves preceding QRS complexes, QRS complex appears narrow, QTC is 458, there are no obvious patterns of ST segment elevation, depression or reciprocal changes to suggest acute myocardial ischemia or infarction. Impression: Normal sinus rhythm with nonspecific ST segments. - Consults Dr. Bryant Time consulted: 22:09 Reason for consultation: 07/20/20 22:09 fever, uti, elevated lactic acid, elevated troponin, ams Consulted provider: will come to ER Critical Care Note - Critical Care Note Total time excluding time spent on procedures (mins): 90 - Septic patient Discharge - Discharge Clinical Impression: Person under investigation for COVID-19, Elevated troponin I level Sepsis Qualifiers: Sepsis type: sepsis due to unspecified organism Sepsis acute organ dysfunction status: unspecified Qualified Code(s): A41.9 - Sepsis, unspecified organism UTI (urinary tract infection) Qualifiers: Urinary tract infection type: site unspecified Hematuria presence: with hematuria Qualified Code(s): N39.0 - Urinary tract infection, site not specified Condition: Stable Disposition: ADMITTED INPATIENT Admitting Provider: Annette (Hospitalist) Unit Admitted: [facility]
[2020-07-20 22:34] LABS: INTERNATIONAL RATION (INR) 1.06
[2020-07-20 23:59] LABS: A TYPE INFLUENZA AG NEGATIVE (NEGATIVE); B INFLUENZA AG NEGATIVE (NEGATIVE)
[2020-07-21] MEDS ORDERED: MAGNESIUM HYDROXIDE SUSP 30 ML UDCUP PO PRN (02:03)
[2020-07-21] MEDS ORDERED: ACETAMINOPHEN 325 MG TABLET PO PRN (02:03)
[2020-07-21] MEDS ORDERED: ONDANSETRON HCL INJ/PF 4 MG/2 ML SDV IV PRN (02:03)
[2020-07-21] MEDS ORDERED: MAG HYDROX/AL HYDROX/SIMETH SUSP 30 ML UDCUP PO PRN (02:03)
[2020-07-21] MEDS ORDERED: ALBUTEROL SULFATE HFA (90 MCG/PUFF) 8 GM MDI (1 MDI/ER DISP) IH PRN (02:03)
[2020-07-21] MEDS ORDERED: PROMETHAZINE HCL INJ 25 MG/1 ML VIAL IV PRN (02:14)
[2020-07-21] MEDS ORDERED: DEXTROSE 40% GEL 15 GM TUBE PO PRN ×2 (02:16)
[2020-07-21] MEDS ORDERED: DEXTROSE 50%-WATER 25 GM/50 ML DISP.SYRIN IV PRN ×2 (02:16)
[2020-07-21] MEDS ORDERED: GLUCAGON,HUMAN RECOMB 1 MG INJ IM PRN (02:16)
--- NOTE | 2020-07-21 02:53 | PDOC H&P ---
History of Present Illness Admission Date/PCP: 07/21/2020 [place] Patient complains of: Shortness of breath and fatigue History of Present Illness: NATHAN ROBLEDO is a 69 year old female with a past medical history including diabetes, hypertension, COPD, hyperlipidemia, sleep apnea, depression and seizures who states that over the last day or 2 she has not been feeling well. Yesterday afternoon noted a progression of symptoms. Today she was short of breath and feeling no better and so she presented to the emergency department. Evaluation in the emergency department revealed fever with mild tachypnea. Blood pressure is elevated. Venous blood gas did not suggest CO2 retention. The patient will be admitted to the hospitalist service. She will be treated with antibiotics. I have started the supplements typical for COVID infection. Past Medical History Cardiac Medical History: Reports: Atrial Fibrillation, Coronary Artery Disease, Myocardial Infarction - 2006, Hypertension Denies: Congestive Heart Failure, Hyperlipidema, Peripheral Vascular Disease, Heart Murmur Pulmonary Medical History: Reports: Asthma, Bronchitis, Chronic Obstructive Pulmonary Disease (COPD), Pneumonia - MULT Denies: Tuberculosis Neurological Medical History: Reports: Migraine, Seizures, Other - Tremor Endocrine Medical History: Reports: Diabetes Mellitus Type 2 Renal/ Medical History: Denies: End Stage Renal Disease GI Medical History: Denies: Hepatitis, Hiatal Hernia Musculoskeltal Medical History: Reports: Arthritis, Fibromyalgia Psychiatric Medical History: Reports: Depression Hematology: Denies: Anemia, Sickle Cell Disease Past Surgical History Past Surgical History: Reports: Appendectomy, Cholecystectomy, Hysterectomy Denies: Amputation, Section, Coronary Artery Bypass Graft, Gastric Bypass Surgery, Herniorrhaphy, Mastectomy, Pacemaker, Tonsillectomy, Tubal Ligation Social History Information Source: Patient - The patient was very sleepy during this encounter. It was difficult getting specific details at times., [facility] Records Lives with: Spouse/Significant other Smoking Status: Current Every Day Smoker Cigarettes Packs Per Day: 0.5 Electronic Cigarette use?: No Frequency of Alcohol Use: None Hx Recreational Drug Use: No Hx Prescription Drug Abuse: No - Advance Directive Resuscitation Status: Do Not Resuscitate Surrogate healthcare decision maker:: The patient's would be the dedicated decision maker Family History Family History: CVA Parental Family History Reviewed: Yes Children Family History Reviewed: Yes Sibling(s) Family History Reviewed.: Yes Medication/Allergy Home Medications: Divalproex Sodium [Divalproex Sodium ER] 500 mg PO TID 10/08/17 Gabapentin 600 mg PO TID 10/08/17 Glipizide [Glipizide ER] 5 mg PO DAILY 10/08/17 Insulin Glargine,Hum.rec.anlog [Lantus Insulin 100 Unit/1 ml 10 ml] 18 unit SUBC UT QHS 10/08/17 Simvastatin [Zocor 20 mg Tablet] 20 mg PO QHS 10/08/17 Cyanocobalamin/FA/Pyridoxine [Folbee Tablet] 1 tab PO DAILY 04/18/20 Escitalopram Oxalate [Lexapro 10 mg Tablet] 10 mg PO DAILY 04/18/20 Tizanidine HCl 2 mg PO ASDIR PRN 04/18/20 Allergies/Adverse Reactions: oxycodone HCl [From Percocet] Allergy (Severe, Verified 04/18/20 08:12) Hives propoxyphene napsylate [From Darvocet-N 100] Allergy (Severe, Verified 04/18/20 08:12) Hives Tetanus Vaccines and Toxoid [Tetanus] Allergy (Severe, Verified 04/18/20 08:12) SWELLING, LOCALIZED REDNESS, FEVER tramadol HCl [From Ultram] Allergy (Severe, Verified 04/18/20 08:12) Hives benazepril Allergy (Verified 04/18/20 08:12) Anaphylaxis codeine [Codeine] Allergy (Verified 04/18/20 08:12) nausea vomit meperidine [From Demerol] Allergy (Verified 04/26/20 11:25) amoxicillin trihydrate [From Augmentin] Adverse Reaction (Verified 04/18/20 08:12) rash Potassium Clavulanate * [From Augmentin] Adverse Reaction (Verified 04/18/20 08:12) Review of Systems All systems: reviewed and no additional remarkable complaints except as stated Constitutional: PRESENT: fever(s) Respiratory: PRESENT: cough, dyspnea Gastrointestinal: PRESENT: diarrhea Neurological: PRESENT: other - Tremor Psychiatric: PRESENT: depression Physical Exam Vital Signs: Temp Pulse Resp BP Pulse Ox 98.7 F 15 132/79 H 99 07/21/20 00:00 07/21/20 02:01 07/21/20 02:01 07/21/20 02:23 Intake & Output 07/19/20 07/20/20 07/21/20 06:59 06:59 06:59 Intake Total 3970 Balance 3970 Weight 94 kg General appearance: PRESENT: cooperative, mild distress, morbidly obese, well- developed Head exam: PRESENT: atraumatic, normocephalic Eye exam: PRESENT: conjunctiva pink, EOMI, PERRLA. ABSENT: scleral icterus Ear exam: PRESENT: normal external ear exam. ABSENT: bleeding, drainage Mouth exam: PRESENT: dry mucosa, tongue midline Neck exam: ABSENT: carotid bruit, JVD, lymphadenopathy, tracheostomy Respiratory exam: PRESENT: prolonged expiratory phas, symmetrical, tachypnea. ABSENT: accessory muscle use, rales, rhonchi, unlabored Cardiovascular exam: PRESENT: RRR, +S1, +S2. ABSENT: bradycardia, diastolic murmur, irregular rhythm, systolic murmur, tachycardia GI/Abdominal exam: PRESENT: normal bowel sounds, soft, other - Pendulous abdomen. ABSENT: guarding, tenderness Rectal exam: PRESENT: deferred Gentrourinary exam: ABSENT: indwelling catheter Extremities exam: ABSENT: pedal edema Musculoskeletal exam: PRESENT: normal inspection. ABSENT: deformity, dislocation Neurological exam: PRESENT: awake, oriented to person, oriented to place, oriented to situation, CN II-XII grossly intact, other - Noticeable continuous right hand pill-rolling tremor at rest.. ABSENT: alert - Patient kept nodding off as she was quite tired Psychiatric exam: PRESENT: flat affect. ABSENT: agitated, anxious Focused psych exam: ABSENT: delusional, paranoid, restlessness Skin exam: PRESENT: dry, normal color, warm. ABSENT: rash Results Laboratory Results: 07/20/20 18:23 07/20/20 18:23 07/20/20 07/20/20 07/20/20 18:23 18:23 18:23 WBC 7.5 RBC 3.58 L Hgb 12.6 Hct 35.6 L MCV 100 H MCH 35.0 H MCHC 35.2 RDW 13.8 Plt Count 139 L Seg Neutrophils % Not Reportable VBG pH 7.42 VBG pCO2 40.5 VBG HCO3 25.9 VBG Base Excess 1.4 Sodium 132.4 L Potassium 3.9 Chloride 99 Carbon Dioxide 24 Anion Gap 9 BUN 11 Creatinine 0.52 Est GFR ( Amer) > 60 Glucose 145 H Lactic Acid Calcium 8.8 Total Bilirubin 1.0 AST 22 Alkaline Phosphatase 59 Total Protein 5.7 L Albumin 3.4 L Urine Color Urine Appearance Urine pH Ur Specific Hooper Urine Protein Urine Glucose (UA) Urine Ketones Urine Blood Urine RBC (Auto) 07/20/20 07/20/20 07/20/20 18:23 18:23 21:50 WBC RBC Hgb Hct MCV MCH MCHC RDW Plt Count Seg Neutrophils % VBG pH VBG pCO2 VBG HCO3 VBG Base Excess Sodium Potassium Chloride Carbon Dioxide Anion Gap BUN Creatinine Est GFR ( Amer) Glucose Lactic Acid 3.1 H 1.6 Calcium Total Bilirubin AST Alkaline Phosphatase Total Protein Albumin Urine Color YELLOW Urine Appearance SLIGHTLY-CLOUDY Urine pH 5.0 Ur Specific Hooper 1.014 Urine Protein 30 H Urine Glucose (UA) NEGATIVE Urine Ketones 20 H Urine Blood SMALL H Urine RBC (Auto) 8 07/20/20 18:23 Troponin I 0.207 Impressions: Chest X-Ray 07/20/20 18:31 IMPRESSION: NO ACUTE FINDINGS. Assessment and Plan - Diagnosis (1) Acute respiratory failure with hypoxemia Is this a current diagnosis for this admission?: Yes Plan: Etiology is unclear. The patient does have a congested cough. Chest x-ray is negative. The patient did have a fever on admission and exhibited increased work of breathing. We will continue CPAP at night for sleep apnea. Will supplement oxygen to keep saturations between 90 and 94%. COVID results pending. Even though the chest x-ray does not reflect a pneumonia, she does have that congested cough and has been feeling poorly. (2) Person under investigation for COVID-19 Is this a current diagnosis for this admission?: Yes Plan: I have started the supplements typically given to covered patients. I have ordered Decadron as well. There is a reasonable chance that she does test positive. (3) UTI (urinary tract infection) Qualifiers: Urinary tract infection type: site unspecified Hematuria presence: with hematuria Qualified Code(s): N39.0 - Urinary tract infection, site not specified; R31.9 - Hematuria, unspecified Is this a current diagnosis for this admission?: Yes Plan: Urinalysis was strongly suggestive of urinary tract infection. Urine culture is pending. Continue antibiotics at this time. (4) Elevated troponin I level Is this a current diagnosis for this admission?: Yes Plan: Initial troponin was 0.2. We will check another troponin levels. We will repeat an EKG in the morning. I have added aspirin therapy. She is not on beta-anders therapy. She already is taking a statin. Blood pressures are reasonable at this time. She is not complaining of any chest discomfort. (5) Hyperglycemia due to type 2 diabetes mellitus Qualifiers: Diabetes mellitus care home insulin use: with emt intermediate use Qualified Code(s): E11.65 - Type 2 diabetes mellitus with hyperglycemia; Z79.4 - FPC (current) use of insulin Is this a current diagnosis for this admission?: Yes Plan: I am holding the patient's glipizide at this time. She will be on sliding scale. Await final medication reconciliation for correct Lantus dosing. Accu- Cheks at bedtime and with meals with sliding scale coverage. (6) Morbid obesity Is this a current diagnosis for this admission?: Yes Plan: Obesity increases her risk for serious disease especially if COVID testing is positive. In addition it adds additional complexity to treating her high blood pressure and diabetes. (7) Obstructive sleep apnea Is this a current diagnosis for this admission?: Yes Plan: The patient does not have her CPAP machine present. She believes her setting is 10 and so I have ordered CPAP nightly. (8) Resting tremor Is this a current diagnosis for this admission?: Yes Plan: The patient has a resting tremor most notable in the right hand. There is a resting tremor that is parkinsonian-like. She is on pramipexole as well as primidone. This can be used for seizure or tremor. (9) Seizure disorder Is this a current diagnosis for this admission?: Yes Plan: Continue Depakote 1500 mg at bedtime. Check Depakote level. (10) Depression Qualifiers: Depression Type: unspecified Qualified Code(s): F32.9 - Major depressive disorder, single episode, unspecified Is this a current diagnosis for this admission?: Yes Plan: Continue Lexapro 10 mg daily - Time Time Spent with patient: 35 or more minutes Smoking Cessation Education: 3 to 10 minutes Medications reviewed and adjusted accordingly: Yes Anticipated Discharge Disposition: Home with Home Health Anticipated Discharge Timeframe: 4 to 5 days - Inpatient Certification Based on my medical assessment, after consideration of the patient's comorbidities, presenting symptoms, or acuity I expect that the services needed warrant INPATIENT care.: Yes I certify that my determination is in accordance with my understanding of Medicare's requirements for reasonable and necessary INPATIENT services [42 CFR 412.3e].: Yes Medical Necessity: Significant Comorbidiites Make Outpatient Treatment Too Risky, Need For IV Fluids, Need For Continuous Telemetry Monitoring, Need for Pain Control, Need for IV Antibiotics Post Hospital Care: D/C or Transfer Summary
[2020-07-21] MEDS: NORMAL SALINE 1000 ML 1,000 ML IV PRN ×2 (03:12→13:11)
[2020-07-21] MEDS ORDERED: NICOTINE 7 MG/24 HR PATCH.TD24 TD PRN (03:40)
[2020-07-21 07:57] LABS: ABSOLUTE EOSINOPHILS # (AUTO) 0.1 10^3/uL (0.0-0.6); ABSOLUTE LYMPHOCYTES (AUTO) 1.4 10^3/uL (0.5-4.7); ABSOLUTE MONOCYTES (AUTO) 0.6 10^3/uL (0.1-1.4); BASOPHILS % (AUTO) 0.2 % (0-2); EOSINOPHILS % (AUTO) 1.1 % (0-6); HEMATOCRIT 34.3 % (36.0-47.0); HEMOGLOBIN 11.8 g/dL (12.0-15.5); LYMPHOCYTES % (AUTO) 27.8 % (13-45); MEAN CORPUSCULAR HEMOGLOBIN 34.5 pg (27.0-33.4); MEAN CORPUSCULAR HGB CONC 34.4 g/dL (32.0-36.0); MEAN CORPUSCULAR VOLUME 100 fl (80-97); MONOCYTES % (AUTO) 11.5 % (3-13); PLATELET COUNT 119 10^3/uL (150-450); RED BLOOD COUNT 3.42 10^6/uL (3.72-5.28); RED CELL DISTRIBUTION WIDTH 13.8 % (11.5-14.0); SEGMENTED NEUTROPHILS % (AUTO) 59.4 % (42-78); TOTAL CELLS COUNTED % (AUTO) 100 %
[2020-07-21 08:34] LABS: ANION GAP 6 (5-19); BLOOD UREA NITROGEN 8 mg/dL (7-20); C-REACTIVE PROTEIN 80.8 mg/L (<10.0); CALCIUM 7.9 mg/dL (8.4-10.2); CARBON DIOXIDE 24 mmol/L (22-30); CHLORIDE 109 mmol/L (98-107); POTASSIUM 3.9 mmol/L (3.6-5.0)
[2020-07-21] MEDS: INSULIN REG, HUMAN 100 UNIT/ML 3 ML VIAL (PYX) SUBCUT SCH ×4 (09:06→21:20)
[2020-07-21 09:07] LABS: GLUCOSE 68 mg/dL (75-110)
--- NOTE | 2020-07-21 10:09 | EKG REPORT ---
SEVERITY:- ABNORMAL ECG - SINUS RHYTHM PROBABLE INFERIOR INFARCT, AGE INDETERMINATE : Confirmed by: Isela Martin MD 21-Jul-2020 10:09:11
--- NOTE | 2020-07-21 10:09 | EKG REPORT ---
SEVERITY:- NORMAL ECG - SINUS RHYTHM : Confirmed by: Isela Martin MD 21-Jul-2020 10:09:06
[2020-07-21] MEDS: ASCORBIC ACID 500 MG TABLET PO SCH ×2 (11:37→18:30)
[2020-07-21] MEDS: CHOLECALCIFEROL (D3) 1,000 UNIT (25 MCG) TABLET PO SCH (11:38)
[2020-07-21] MEDS: ZINC SULFATE 220 MG CAPSULE PO SCH (11:38)
[2020-07-21] MEDS: ENOXAPARIN SODIUM INJ 40 MG/0.4 ML DISP.SYRIN SUBCUT SCH (11:39)
[2020-07-21] MEDS: DEXAMETHASONE SOD PHOSPHATE INJ 4 MG/1 ML VIAL IV SCH (11:39)
[2020-07-21] MEDS: ESCITALOPRAM OXALATE 10 MG TABLET PO SCH (11:39)
[2020-07-21] MEDS: LEVOFLOXACIN 750 MG/D5W RTU 750 MG/150 ML RTUPB IV SCH (14:12)
[2020-07-21] MEDS ORDERED: PRAMIPEXOLE DI-HCL 0.5 MG TABLET PO SCH (22:00)
[2020-07-21] MEDS ORDERED: AZITHROMYCIN 500 MG in DEXTROSE 5%-WATER 250 ML IV SCH (22:00)
[2020-07-21] MEDS ORDERED: PRIMIDONE 50 MG TABLET PO SCH (22:00)
[2020-07-21] MEDS ORDERED: MELATONIN 5 MG TABLET PO SCH (22:00)
[2020-07-21] MEDS ORDERED: LEVOFLOXACIN 750 MG/D5W RTU 750 MG/150 ML RTUPB IV SCH (22:00)
[2020-07-21] MEDS ORDERED: DIVALPROEX SODIUM 500 MG TAB.SR.24H PO SCH (22:00)
[2020-07-21] MEDS ORDERED: SIMVASTATIN 10 MG TABLET PO SCH (22:00)
[2020-07-21] MEDS ORDERED: ASPIRIN 81 MG TABLET, ENT COATED PO SCH (22:00)
[2020-07-21] MEDS ORDERED: PRAMIPEXOLE DI-HCL 0.5 MG TABLET ONE (22:13)
[2020-07-22 06:57] LABS: ABSOLUTE LYMPHOCYTES (AUTO) 1.2 10^3/uL (0.5-4.7); ABSOLUTE MONOCYTES (AUTO) 0.4 10^3/uL (0.1-1.4); ABSOLUTE NEUT (AUTO) 2.6 10^3/uL (1.7-8.2); BASOPHILS % (AUTO) 0.2 % (0-2); HEMATOCRIT 32.4 % (36.0-47.0); HEMOGLOBIN 11.4 g/dL (12.0-15.5); LYMPHOCYTES % (AUTO) 28.7 % (13-45); MEAN CORPUSCULAR HEMOGLOBIN 34.6 pg (27.0-33.4); MEAN CORPUSCULAR HGB CONC 35.1 g/dL (32.0-36.0); MEAN CORPUSCULAR VOLUME 99 fl (80-97); MONOCYTES % (AUTO) 10.5 % (3-13); PLATELET COUNT 119 10^3/uL (150-450); RED BLOOD COUNT 3.28 10^6/uL (3.72-5.28); RED CELL DISTRIBUTION WIDTH 13.5 % (11.5-14.0); SEGMENTED NEUTROPHILS % (AUTO) 60.6 % (42-78); TOTAL CELLS COUNTED % (AUTO) 100 %; WHITE BLOOD COUNT 4.2 10^3/uL (4.0-10.5)
[2020-07-22 07:31] LABS: ANION GAP 5 (5-19); BLOOD UREA NITROGEN 8 mg/dL (7-20); CALCIUM 8.8 mg/dL (8.4-10.2); CARBON DIOXIDE 26 mmol/L (22-30); CHLORIDE 103 mmol/L (98-107); GLUCOSE 111 mg/dL (75-110); POTASSIUM 4.5 mmol/L (3.6-5.0)
[2020-07-22] MEDS: INSULIN REG, HUMAN 100 UNIT/ML 3 ML VIAL (PYX) SUBCUT SCH ×2 (09:37→12:19)
[2020-07-22] MEDS: LEVOFLOXACIN 750 MG/D5W RTU 750 MG/150 ML RTUPB IV SCH ×2 (09:40→09:53)
[2020-07-22] MEDS: ASCORBIC ACID 500 MG TABLET PO SCH (09:41)
[2020-07-22] MEDS: DEXAMETHASONE SOD PHOSPHATE INJ 4 MG/1 ML VIAL IV SCH (09:41)
[2020-07-22] MEDS: ZINC SULFATE 220 MG CAPSULE PO SCH (09:42)
[2020-07-22] MEDS: CHOLECALCIFEROL (D3) 1,000 UNIT (25 MCG) TABLET PO SCH (09:42)
[2020-07-22] MEDS: ESCITALOPRAM OXALATE 10 MG TABLET PO SCH (09:42)
[2020-07-22] MEDS: ENOXAPARIN SODIUM INJ 40 MG/0.4 ML DISP.SYRIN SUBCUT SCH (09:42)
[2020-07-22 12:51] VITALS: BP 118/74
--- NOTE | 2020-07-22 14:13 | PDOC DISCHARGE SUMMARY ---
Impression - Admit/DC Date/PCP Admission Date/Primary Care Provider: 07/21/20 02:21 Discharge Date: 07/22/20 - Discharge Diagnosis (1) E. coli UTI Is this a current diagnosis for this admission?: Yes (2) Acute respiratory failure with hypoxemia Is this a current diagnosis for this admission?: Yes (3) Elevated troponin I level Is this a current diagnosis for this admission?: Yes (4) Obstructive sleep apnea Is this a current diagnosis for this admission?: Yes (5) Person under investigation for COVID-19 Is this a current diagnosis for this admission?: Yes (6) Seizure disorder Is this a current diagnosis for this admission?: Yes (7) UTI (urinary tract infection) Is this a current diagnosis for this admission?: Yes (8) Hyperglycemia due to type 2 diabetes mellitus Is this a current diagnosis for this admission?: Yes - Assessment Summary: NATHAN ROBLEDO is a 69 year old female with past medical history including diabetes, hypertension, COPD, hyperlipidemia, sleep apnea, depression and seizures who states that over the last 1-2 days prior to admission, she has not been feeling well. She has had no sick contacts. On the day of admission, she felt short of breath so she presented to the emergency department. Evaluation in the emergency department revealed fever. Venous blood gas did not suggest CO2 retention. She was mildly hypoxemic. The patient was admitted briefly to the hospitalist service due to suspicion for possible COVID infection, which was ruled out. She was weaned off of oxygen therapy by the day of discharge and had a normal ambulatory saturation test. Hospital course was complicated by NSTEMI type 2, demand ischemia, in the s/o SOB, fever and likely URI. EKG showed no ischemic changes. She was started on ASA/statin therapy. She was advised to follow up with her PCP. She is morbidly obese, and would benefit from diet/exercise and weight loss. She completed 3 days of IV antibiotic therapy while inpatient. - Additional Information Resuscitation Status: Do Not Resuscitate Discharge Diet: Cardiac, Diabetic Discharge Activity: Activity As Tolerated Referrals: MARY CHAND MD [ACTIVE STAFF] - Prescriptions: Atorvastatin Calcium [Lipitor 40 mg Tablet] 40 mg PO QHS #30 tablet Home Medications: Divalproex Sodium [Divalproex Sodium ER] 1,500 mg PO QHS 10/08/17 Gabapentin 600 mg PO TID 10/08/17 Glipizide [Glipizide ER] 5 mg PO DAILY 10/08/17 Insulin Glargine,Hum.rec.anlog [Lantus (Pyxis) Insulin 100 Unit/1 ml 10 ml] 18 unit SUBCUT QHS 10/08/17 Cyanocobalamin/FA/Pyridoxine [[place]bee Tablet] 1 tab PO DAILY 04/18/20 Escitalopram Oxalate [Lexapro 10 mg Tablet] 10 mg PO DAILY 04/18/20 Albuterol Sulfate [Proair HFA Inhalation Aerosol 8.5 gm MDI] 2 puff IH Q6HP PRN 07/21/20 Carisoprodol 250 mg PO TIDP PRN 07/21/20 Pramipexole Di-HCl [Mirapex 0.25 mg Tablet] 0.25 mg PO QHS 07/21/20 Primidone [Mysoline 50 mg Tablet] 50 mg PO QHS 07/21/20 Aspirin [Ecotrin 81 mg EC Tablet] 81 mg PO QHS tabec 07/22/20 Atorvastatin Calcium [Lipitor 40 mg Tablet] 40 mg PO QHS #30 tablet 07/22/20 History of Present Illiness History of Present Illness: NATHAN ROBLEDO is a 69 year old female Physical Exam Vital Signs: Temp Pulse Resp BP Pulse Ox 97.5 F 62 20 118/74 92 07/22/20 12:45 07/22/20 12:45 07/22/20 12:45 07/22/20 12:45 07/22/20 12:45 Intake & Output 07/21/20 07/22/20 07/23/20 06:59 06:59 06:59 Intake Total 4054 2336 Balance 4054 2336 Weight 92.3 kg 95.3 kg Results Laboratory Results: WBC 4.2 10^3/uL (4.0-10.5) 07/22/20 06:40 RBC 3.28 10^6/uL (3.72-5.28) L 07/22/20 06:40 Hgb 11.4 g/dL (12.0-15.5) L 07/22/20 06:40 Hct 32.4 % (36.0-47.0) L 07/22/20 06:40 MCV 99 fl (80-97) H 07/22/20 06:40 MCH 34.6 pg (27.0-33.4) H 07/22/20 06:40 MCHC 35.1 g/dL (32.0-36.0) 07/22/20 06:40 RDW 13.5 % (11.5-14.0) 07/22/20 06:40 Plt Count 119 10^3/uL (150-450) L 07/22/20 06:40 Lymph % (Auto) 28.7 % (13-45) 07/22/20 06:40 [place] % (Auto) 10.5 % (3-13) 07/22/20 06:40 Eos % (Auto) 0.0 % (0-6) 07/22/20 06:40 Baso % (Auto) 0.2 % (0-2) 07/22/20 06:40 Absolute Neuts (auto) 2.6 10^3/uL (1.7-8.2) 07/22/20 06:40 Absolute Lymphs (auto) 1.2 10^3/uL (0.5-4.7) 07/22/20 06:40 Absolute Monos (auto) 0.4 10^3/uL (0.1-1.4) 07/22/20 06:40 Absolute Eos (auto) 0.0 10^3/uL (0.0-0.6) 07/22/20 06:40 Absolute Basos (auto) 0.0 10^3/uL (0.0-0.2) 07/22/20 06:40 Total Counted 100 07/20/20 18:23 Seg Neutrophils % 60.6 % (42-78) 07/22/20 06:40 Seg Neuts % (Manual) 95 % (42-78) H 07/20/20 18:23 Lymphocytes % (Manual) 3 % (13-45) L 07/20/20 18:23 Monocytes % (Manual) 2 % (3-13) L 07/20/20 18:23 Eosinophils % (Manual) 0 % (0-6) 07/20/20 18:23 Basophils % (Manual) 0 % (0-2) 07/20/20 18:23 Abs Neuts (Manual) 7.1 10^3/uL (1.7-8.2) 07/20/20 18:23 Abs Lymphs (Manual) 0.2 10^3/uL (0.5-4.7) L 07/20/20 18:23 Abs Monocytes (Manual) 0.2 10^3/uL (0.1-1.4) 07/20/20 18: Absolute Eos (Manual) 0.0 10^3/uL (0.0-0.6) 07/20/20 18: Abs Basophils (Manual) 0.0 10^3/uL (0.0-0.2) 07/20/20 18: Clumped Platelets PRESENT 07/20/20: Platelet Comment ADEQUATE 07/20/20 18: Macrocytosis SLIGHT 07/20/20 18: PT 14.0 SEC (11.4-15.4) 07/20/20 21:50 INR 1.06 07/20/20 21:50 D-Dimer 0.81 ug/mL (0.00-0.50) H 07/21/20 07:30 VBG pH 7.42 (7.30-7.42) 07/20/20 18: VBG pCO2 40.5 mmHg (35-63) 07/20/20 18: VBG HCO3 25.9 mmol/L (20-32) 07/20/20 18: VBG Base Excess 1.4 mmol/L 07/20/20 18:23 Sodium 134.2 mmol/L (137-145) L 07/22/20 06:40 Potassium 4.5 mmol/L (3.6-5.0) 07/22/20 06:40 Chloride 103 mmol/L (98-107) 07/22/20 06:40 Carbon Dioxide 26 mmol/L (22-30) 07/22/20 06:40 Anion Gap 5 (5-19) 07/22/20 06:40 BUN 8 mg/dL (7-20) 07/22/20 06:40 Creatinine 0.42 mg/dL (0.52-1.25) L 07/22/20 06:40 Est GFR ( Amer) > 60 (>60) 07/22/20 06:40 Est GFR (MDRD) Non-Af > 60 (>60) 07/22/20 06:40 Glucose 111 mg/dL (75-110) H 07/22/20 06:40 POC Glucose 128 mg/dL (70-110) H 07/22/20 11:13 Lactic Acid 1.1 mmol/L (0.7-2.1) 07/21/20 02:12 Calcium 8.8 mg/dL (8.4-10.2) 07/22/20 06:40 Magnesium 2.0 mg/dL (1.6-2.3) 07/21/20 07:30 Ferritin 190.00 ng/mL (11.1-264.0) 07/21/20 07:30 Total Bilirubin 1.0 mg/dL (0.2-1.3) 07/20/20 18:23 Direct Bilirubin 0.3 mg/dL (0.0-0.4) 07/20/20 18:23 Neonat Total Bilirubin Not Reportable 07/20/20 18:23 Neonat Direct Bilirubin Not Reportable 07/20/20 18:23 Neonat Indirect Bili Not Reportable 07/20/20 18:23 AST 22 U/L (14-36) 07/20/20 18:23 ALT 13 U/L (<35) 07/20/20 18:23 Alkaline Phosphatase 59 U/L (38-126) 07/20/20 18:23 Lactate Dehydrogenase 156 U/L (120-246) 07/21/20 07:30 Troponin I 0.151 ng/mL 07/21/20 12:10 C-Reactive Protein 80.8 mg/L (<10.0) H 07/21/20 07:30 Total Protein 5.7 g/dL (6.3-8.2) L 07/20/20 18:23 Albumin 3.4 g/dL (3.5-5.0) L 07/20/20 18:23 Urine Color YELLOW 07/20/20 18:23 Urine Appearance SLIGHTLY-CLOUDY 07/20/20 18:23 Urine pH 5.0 (5.0-9.0) 07/20/20 18:23 Ur Specific [place] 1.014 07/20/20 18:23 Urine Protein 30 mg/dL (NEGATIVE) H 07/20/20 18:23 Urine Glucose (UA) NEGATIVE mg/dL (NEGATIVE) 07/20/20 18:23 Urine Ketones 20 mg/dL (NEGATIVE) H 07/20/20 18:23 Urine Blood SMALL (NEGATIVE) H 07/20/20 18:23 Urine Nitrite (Reflex) NEGATIVE (NEGATIVE) 07/20/20 18:23 Urine Bilirubin NEGATIVE (NEGATIVE) 07/20/20 18:23 Urine Urobilinogen NEGATIVE mg/dL (<2.0) 07/20/20 18:23 Leukocyte Esterase Rfl MODERATE (NEGATIVE) H 07/20/20 18:23 Urine RBC (Auto) 8 /HPF 07/20/20 18:23 Urine Bacteria (Auto) 1+ /HPF 07/20/20 18:23 Urine WBC (Reflex) 156 /HPF 07/20/20 18:23 Squamous Epi Cells Auto <1 /HPF 07/20/20 18:23 Urine Mucus (Auto) RARE /LPF 07/20/20 18:23 Urine Ascorbic Acid NEGATIVE (NEGATIVE) 07/20/20 18:23 Valproic Acid 25.4 ug/mL (50.0-120.0) L 07/21/20 07:30 COVID-19 Source See comment 07/20/20 22:06 COVID-19 (JELLY) Not Detected (Not Detect) 07/20/20 22:06 Influenza A (Rapid) NEGATIVE (NEGATIVE) 07/20/20 21:50 Influenza B (Rapid) NEGATIVE (NEGATIVE) 07/20/20 21:50 07/20/20 07/21/20 07/21/20 18:23 07:30 12:10 Troponin I 0.207 0.157 0.151 Impressions: Chest X-Ray 07/20/20 18:31 IMPRESSION: NO ACUTE FINDINGS. Stroke Is this a Stroke Patient?: No Acute Heart Failure Is this a Heart Failure Patient?: No Discharged on Evidence-Based Beta Blockers: No, document contraindications
== END 2020-07-22 16:02 | disposition home or self-care (01) | DRG 689 ==
LOC: ER 18:13 → EH 07-21 02:21 → 3W 07-21 04:11
PROVIDERS: ADMIT Hospitalist; ATTEND Hospitalist
PROC: 5A09457 Assistance with Respiratory Ventilation, 24-96 Consecutive Hours, Continuous Positive Airway Pressure (ICD-10-PCS; principal; 2020-07-21)
DX: N39.0 Urinary tract infection, site not specified (principal); J96.01 Acute respiratory failure with hypoxia; F32.9 Major depressive disorder, single episode, unspecified; E78.00 Pure hypercholesterolemia, unspecified; G47.33 Obstructive sleep apnea (adult) (pediatric); Z20.828 Contact with and (suspected) exposure to other viral communicable diseases; B96.20 Unspecified Escherichia coli [E. coli] as the cause of diseases classified elsewhere; G40.909 Epilepsy, unspecified, not intractable, without status epilepticus; E11.65 Type 2 diabetes mellitus with hyperglycemia; I10 Essential (primary) hypertension; J44.9 Chronic obstructive pulmonary disease, unspecified; E66.01 Morbid (severe) obesity due to excess calories; E78.5 Hyperlipidemia, unspecified; Z66 Do not resuscitate; I25.10 Atherosclerotic heart disease of native coronary artery without angina pectoris; F17.210 Nicotine dependence, cigarettes, uncomplicated; G25.2 Other specified forms of tremor; I69.398 Other sequelae of cerebral infarction; H53.8 Other visual disturbances; I25.2 Old myocardial infarction; Z79.4 Long term (current) use of insulin; Z79.899 Other long term (current) drug therapy; Z79.82 Long term (current) use of aspirin; Z82.3 Family history of stroke; Z88.6 Allergy status to analgesic agent; Z88.1 Allergy status to other antibiotic agents; Z88.7 Allergy status to serum and vaccine
CPT/HCPCS: 36415; 71045; 80048; 80053; 80164; 81001; 82728; 82803; 82962; 83605; 83615; 83735; 84484; 85025; 85379; 85610; 86140; 87040; 87086; 87088; 87186; 87635; 87804; 93005; 93010; 94660; 96361; 96365; 96366; 96375; 99291; 99292; C9803; J1100; J1650; J1815; J1956; J2405; J3490; J7030